=== PATIENT | female | born 1955 | race Caucasian/White ===

== ENCOUNTER → 2019-05-14 15:59 | Outpatient (CLI) | payer OTHER, SELFPAY ==
--- NOTE | 2019-05-14 16:06 | XR_ITS ---
XR foot wt bearing RT 3V HISTORY: ITS.REASON: pain ORDERING PHYSICIAN: Sandra Castanon DPM PATIENT AGE: 63 years COMPARISON: None FINDINGS: There are severe osteoarthritic changes of the first metatarsophalangeal joint with bony hypertrophy. No fracture or dislocation. Prominent bony spurring is present along the dorsal aspect of the first metatarsal distally. 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
== END ==
PROVIDERS: PCP Family Medicine; Visit Provider Podiatrist
DX: M20.21 Hallux rigidus, right foot (principal); M79.671 Pain in right foot
CPT/HCPCS: 73630

== ENCOUNTER → 2019-05-22 14:40 | Outpatient (CLI) | payer OTHER, SELFPAY ==
--- NOTE | 2019-05-22 14:46 | XR_ITS ---
XR chest 2V HISTORY: ITS.REASON: HTN ORDERING PHYSICIAN: Gracia Bartlett APRN PATIENT AGE: 63 years COMPARISON: None FINDINGS: The cardiomediastinal silhouette and pulmonary vascularity are within normal limits. Lungs are clear except there is a left lower lobe noncalcified granuloma and benign calcified left hilar lymph nodes. There is no pneumothorax or pleural effusion.. No acute bony abnormalities. IMPRESSION: No acute process.
[2019-05-22 16:45] LABS: Basophils % 0.3 % (0.1-2.0); Eosinophils # 0.2 K/mm3 (0.0-0.4); Eosinophils % 3.3 % (0.1-12.0); Hematocrit 39.2 % (37.0-47.0); Hemoglobin 12.4 g/dL (12.2-16.2); Lymphocytes # 0.9 K/mm3 (0.7-4.5); Lymphocytes % 13.4 % (10-50); Mean Corpuscular HGB Conc 31.7 g/dL (31.8-35.4); Mean Corpuscular Hemoglobin 27.3 pg (27.0-31.2); Mean Corpuscular Volume 86.2 fl (81-99); Monocytes # 0.3 K/mm3 (0.1-1.0); Monocytes % 4.4 % (1.7-9.3); Neutrophils # 5.4 K/mm3 (1.8-7.8); Neutrophils % 78.5 % (37.0-80.0); Platelet Count 256 K/mm3 (142-424); Red Blood Count 4.55 M/mm3 (4.20-5.40); White Blood Count 6.9 K/mm3 (4.8-10.8)
[2019-05-22 17:55] LABS: Aspartate Amino Transferase 16 U/L (15-37); Blood Urea Nitrogen 24 mg/dL (7-18); Potassium 3.8 mmoL/L (3.5-5.1); Total Protein,Serum 6.3 gm/dL (6.4-8.2)
[2019-05-22 17:57] LABS: Alanine Aminotransferase 24 U/L (12-78); Albumin Level 3.5 gm/dL (3.4-5.0); Albumin/Globulin Ratio 1.3 (1.1-1.8); Alkaline Phosphatase 115 U/L (46-116); Anion Gap 16.8 mEq/L (5-15); Bilirubin,Total 0.4 mg/dL (0.2-1.0); Calcium 8.7 mg/dL (8.5-10.1); Carbon Dioxide 25 mmol/L (21.0-32.0); Chloride 107 mmol/L (98-107); Chol/HDL Ratio 3.5 (1-3.5); Cholesterol 257 mg/dL (140-200); Creatinine,Serum 0.94 mg/dL (0.55-1.02); Estimated Glomerular Filt Rate 61 ml/min (>60); GFR (African American) 73 ML/MIN (>60); Globulin 2.8 gm/dl (1.3-3.2); Glucose 127 mg/dL (74-106); HDL Cholesterol 73 mg/dL (29-89); LDL Cholesterol 146 mg/dL (0-130); Sodium 145 mmol/L (136-145); Thyroid Stimulating Hormone 1.53 uIU/ml (0.358-3.740); Triglycerides 188 mg/dL (30-200); VLDL Cholesterol 38 mg/dL (0-40)
[2019-05-24 18:35] LABS: Vitamin D 25 Hydroxy 26.8 ng/mL (30.0-100.0)
== END ==
PROVIDERS: PCP Nurse Practitioner Family; Visit Provider Nurse Practitioner Family
DX: Z01.818 Encounter for other preprocedural examination (principal); Z76.89 Persons encountering health services in other specified circumstances
CPT/HCPCS: 71046; 80053; 80061; 82652; 84436; 84443; 85025; 93005

== ENCOUNTER → 2019-06-17 12:47 | Outpatient (CLI) | payer OTHER, SELFPAY ==
--- NOTE | 2019-06-17 12:54 | XR_ITS ---
XR foot wt bearing RT 3V HISTORY: ITS.REASON: post-op ORDERING PHYSICIAN: Sandra Castanon DPM PATIENT AGE: 63 years COMPARISON: 05/14/2019 and 06/04/2019. FINDINGS: A cast device is now present. There has been surgery with compression plate and fixation screws at the first MTP joint. The alignment at this site is stable without abnormal angulation. There is no acute fracture. Much of the osseous detail is obscured by the splint device. Impression: Postoperative findings.
== END ==
PROVIDERS: PCP Nurse Practitioner Family; Visit Provider Podiatrist
DX: Z98.890 Other specified postprocedural states (principal)
CPT/HCPCS: 73630

== ENCOUNTER → 2019-07-21 09:10 | Outpatient (CLI) | payer BC, SELFPAY ==
--- NOTE | 2019-07-21 09:15 | XR_ITS ---
PROCEDURE: XR FOOT WT BEARING LT 3V CLINICAL INDICATION: post-op Follow-up fusion COMPARISON: from 06/04/2019 from 06/04/2019 FINDINGS: S/p arthrodesis 1st MTP joint with crossing screws at the 1st MTP joint. There has been fusion of the joint. Status post osteotomy distal aspect of the proximal phalanx of the 2nd digit unchanged. Good alignment. Other findings:None. IMPRESSION: No change status post arthrodesis 1st MTP joint and osteotomy of the distal aspect of the proximal phalanx of the 2nd toe Dictated by: Nick Amanda MD 07/21/2019 12:08 Signed by: <Electronically signed by Nick Amanda MD in [place]> 07/21/2019 12:08
--- NOTE | 2019-07-21 09:15 | XR_ITS ---
PROCEDURE: XR FOOT WT BEARING RT 3V CLINICAL INDICATION: post-op Follow-up ORIF/fusion COMPARISON: from 05/14/2019 [id number] XR foot wt bearing RT 3V from 06/17/2019 FINDINGS: The cast has been removed. Dorsal bone plate with an oblique screw through the 1st MTP joint once again noted with fusion of the 1st metatarsophalangeal joint Other findings:None. IMPRESSION: Good alignment status post arthrodesis 1st MTP Dictated by: Nick Amanda MD 07/21/2019 12:07 Signed by: <Electronically signed by Nick Amanda MD in [facility]> 07/21/2019 12:07
== END ==
PROVIDERS: PCP Family Medicine; Visit Provider Podiatrist
DX: Z98.890 Other specified postprocedural states (principal)
CPT/HCPCS: 73630

== ENCOUNTER → 2019-09-01 10:15 | Outpatient (CLI) | payer BC, SELFPAY ==
--- NOTE | 2019-09-01 10:21 | XR_ITS ---
PROCEDURE: XR FOOT WT BEARING RT 3V CLINICAL INDICATION: Post-op Follow-up ORIF/1st MTP fusion COMPARISON: from 06/04/2019 FINDINGS: The cast has been removed. The dorsal bone plate is present with arthrodesis of the 1st MTP joint and an oblique screw through the 1st MTP. There is good alignment. Joint space is still present. No obvious orthopedic complications. IMPRESSION: Status post arthrodesis of the 1st MTP joint with good alignment Dictated by: Nick Amanda MD 09/01/2019 10:44 Electronically signed by Nick Amanda MD in [place] 09/01/2019 10:44
== END ==
PROVIDERS: PCP Family Medicine; Visit Provider Podiatrist
DX: Z98.890 Other specified postprocedural states (principal); M20.42 Other hammer toe(s) (acquired), left foot; M20.41 Other hammer toe(s) (acquired), right foot; M19.071 Primary osteoarthritis, right ankle and foot
CPT/HCPCS: 73630